=== PATIENT | female | born 1945 | race Two or more races ===

== ENCOUNTER 2017-09-25 08:29 | Outpatient (CLI) | payer OTHER | END 2017-09-25 08:42 | disposition home or self-care (01) | LOC: LAB 08:29 | DX: R53.82 Chronic fatigue, unspecified (principal); R53.1 Weakness; N95.1 Menopausal and female climacteric states; E03.8 Other specified hypothyroidism; E55.9 Vitamin D deficiency, unspecified; I10 Essential (primary) hypertension ==

== ENCOUNTER 2017-11-12 08:51 | Outpatient (CLI) | payer OTHER | END 2017-11-12 08:57 | disposition home or self-care (01) | LOC: RAD 08:51 | DX: M17.11 Unilateral primary osteoarthritis, right knee (principal); M17.12 Unilateral primary osteoarthritis, left knee ==

== ENCOUNTER → 2018-02-03 | Outpatient (CLI) | payer OTHER | END | disposition home or self-care (01) | LOC: NUCLEAR 14:34 | DX: M81.0 Age-related osteoporosis without current pathological fracture (principal) ==

== ENCOUNTER 2018-02-04 08:56 | Outpatient (CLI) | payer OTHER | END 2018-02-04 09:11 | disposition home or self-care (01) | LOC: MAMO-SONO 08:56 | DX: Z12.31 Encounter for screening mammogram for malignant neoplasm of breast (principal); Z87.898 Personal history of other specified conditions; N60.11 Diffuse cystic mastopathy of right breast; N60.12 Diffuse cystic mastopathy of left breast ==

== ENCOUNTER 2018-10-11 07:44 | Outpatient (CLI) | payer OTHER | END 2018-10-11 07:55 | disposition home or self-care (01) | LOC: LAB 07:44 | DX: I10 Essential (primary) hypertension (principal); D64.89 Other specified anemias; Z12.11 Encounter for screening for malignant neoplasm of colon; E03.8 Other specified hypothyroidism; N95.1 Menopausal and female climacteric states; C51.8 Malignant neoplasm of overlapping sites of vulva; N30.00 Acute cystitis without hematuria; E83.51 Hypocalcemia; A64 Unspecified sexually transmitted disease; R97.8 Other abnormal tumor markers ==

== ENCOUNTER 2018-10-12 11:02 | Outpatient (CLI) | payer OTHER | END 2018-10-12 11:05 | disposition home or self-care (01) | LOC: LAB 11:02 | DX: K59.1 Functional diarrhea (principal); R19.4 Change in bowel habit ==

== ENCOUNTER → 2018-10-14 | Outpatient (CLI) | payer OTHER | END | disposition home or self-care (01) | LOC: SONOGRAMA 08:09 → MAMO-SONO 08:15 | DX: R10.11 Right upper quadrant pain (principal) ==

== ENCOUNTER 2018-11-11 10:08 | Outpatient (CLI) | payer OTHER | END 2018-11-11 13:33 | disposition HB | LOC: LAB 10:08 | DX: A09 Infectious gastroenteritis and colitis, unspecified (principal) ==

== ENCOUNTER 2018-12-06 10:01 | Outpatient (CLI) | payer OTHER | END 2018-12-06 10:13 | disposition home or self-care (01) | LOC: LAB 10:01 | DX: A09 Infectious gastroenteritis and colitis, unspecified (principal) ==

== ENCOUNTER 2018-12-08 08:04 | Outpatient (CLI) | payer OTHER | END 2018-12-08 08:13 | disposition home or self-care (01) | LOC: LAB 08:04 | DX: R19.8 Other specified symptoms and signs involving the digestive system and abdomen (principal) ==

== ENCOUNTER 2018-12-20 08:11 | Outpatient (CLI) | payer OTHER | END 2018-12-20 08:29 | disposition home or self-care (01) | LOC: LAB 08:11 | DX: A07.1 Giardiasis [lambliasis] (principal) ==